=== PATIENT | female | born 1965 | race African-American/Black ===

== ENCOUNTER 2018-09-13 20:43 | Inpatient (IN) | payer OTHER ==
[~2018-09-13] VITALS: Ht 167.6 cm; Wt 117.0 kg
[2018-09-13 22:17] LABS: BASOPHIL % 0.1 % (0-2); PLATELET COUNT 266 x10^3mcL (130-400)
[2018-09-13 22:18] LABS: RED CELL DISTRIBUTION WIDTH 17.9 % (11.5-14.5)
[2018-09-13 22:29] LABS: CARBON DIOXIDE 28.5 mmol/L (21-32); CHLORIDE SERUM 103 mmol/L (98-107); CREATININE SERUM 0.9 mg/dL (0.6-1.0); GFR1 > 60 mL/min; GLUCOSE SERUM 88 mg/dL (74-106); POTASSIUM SERUM 3.8 mmol/L (3.5-5.1); SODIUM SERUM 140 mmol/L (136-145)
[2018-09-13 22:33] LABS: ALBUMIN 3.8 g/dL (3.4-5.0); ALKALINE PHOSPHATASE 85 U/L (46-116); ALT/SGPT 24 U/L (14-59); AST/SGOT 16 U/L (15-37); BILIRUBIN TOTAL 0.24 mg/dL (0.20-1.00); TOTAL PROTEIN, SERUM 8.2 g/dL (6.4-8.2)
[2018-09-14] MEDS ORDERED: COR6 PO (01:53)
[2018-09-14] MEDS ORDERED: LASIX40 MG PO (01:54)
[2018-09-14] MEDS ORDERED: CATAPRES0.1 MG PO (01:55)
[2018-09-14 02:49] LABS: CHOLESTEROL/HDL RATIO 4.7; MAGNESIUM 2.1 mg/dL (1.8-2.4); PHOSPHOROUS 3.2 mg/dL (2.5-4.9)
[2018-09-14 03:03] LABS: FREE T4 0.78 ng/dL (0.76-1.46); FREE THYROXINE INDEX 2.3 ug/dL (1.4-4.5); T4(THYROXINE) 8.1 ug/dL (4.7-13.3)
[2018-09-14 04:09] LABS: T3 TOTAL 1.11 ng/mL
[2018-09-14 04:57] VITALS: BP 150/90
[2018-09-14 05:00] VITALS: BP 150/90
[2018-09-14 06:31] LABS: CARBON DIOXIDE 32.4 mmol/L (21-32); CREATININE SERUM 1.1 mg/dL (0.6-1.0); PHOSPHOROUS 2.9 mg/dL (2.5-4.9); POTASSIUM SERUM 3.5 mmol/L (3.5-5.1)
[2018-09-14 06:48] VITALS: Ht 167.6 cm; Wt 117.0 kg
[2018-09-14 07:32] LABS: PLATELET COUNT 228 x10^3mcL (130-400)
[2018-09-14 07:39] LABS: BASOPHIL % 0 % (0-2)
[2018-09-14 07:42] LABS: microscopic required? NO
[2018-09-14 08:19] LABS: urine erythrocyte NEGATIVE (NEGATIVE)
[2018-09-14 08:30] VITALS: BP 157/85
[2018-09-14 08:40] LABS: AMPHETAMINE QUAL UR NONE DETECTED (See below)
[2018-09-14 09:21] VITALS: BP 184/81
[2018-09-14 11:58] VITALS: BP 144/76
[2018-09-14 16:33] VITALS: BP 136/70
[2018-09-15 05:31] VITALS: BP 167/58
[2018-09-15 06:51] VITALS: BP 149/76
[2018-09-15 06:53] LABS: PLATELET COUNT 226 x10^3mcL (130-400)
[2018-09-15 07:24] LABS: CALCIUM 9.1 mg/dL (8.5-10.1); CARBON DIOXIDE 31.7 mmol/L (21-32); CREATININE SERUM 1.1 mg/dL (0.6-1.0); MAGNESIUM 2.4 mg/dL (1.8-2.4); PHOSPHOROUS 4.2 mg/dL (2.5-4.9); POTASSIUM SERUM 3.7 mmol/L (3.5-5.1); RED CELL DISTRIBUTION WIDTH 17.6 % (11.5-14.5)
[2018-09-15 10:40] VITALS: BP 139/64
[2018-09-15 13:00] VITALS: BP 180/65
[2018-09-15] MEDS ORDERED: TOP50 PO (16:12)
[2018-09-15] MEDS ORDERED: ALT5 PO (16:13)
[2018-09-15] MEDS ORDERED: CHLORTHALIDONE25 MG PO (16:15)
[2018-09-15] MEDS ORDERED: POTASSIUM CHLOR8 ME1 PO (16:16)
[2018-09-15 16:35] VITALS: BP 150/70
== END 2018-09-15 18:30 | disposition home or self-care (01) | DRG 199 ==
LOC: ED 20:43 → DU 09-14 00:20
PROVIDERS: Emergency Medicine; ADMIT Internal Medicine
DX: I16.0 Hypertensive urgency (principal); I50.9 Heart failure, unspecified; E88.81 Metabolic syndrome and other insulin resistance; E11.65 Type 2 diabetes mellitus with hyperglycemia; E66.01 Morbid (severe) obesity due to excess calories; D50.9 Iron deficiency anemia, unspecified; E78.5 Hyperlipidemia, unspecified; I11.0 Hypertensive heart disease with heart failure; K58.9 Irritable bowel syndrome, unspecified; J44.9 Chronic obstructive pulmonary disease, unspecified; Z90.49 Acquired absence of other specified parts of digestive tract; Z90.710 Acquired absence of both cervix and uterus; Z83.3 Family history of diabetes mellitus; Z82.49 Family history of ischemic heart disease and other diseases of the circulatory system; Z91.011 Allergy to milk products; Z91.018 Allergy to other foods; Z86.711 Personal history of pulmonary embolism; Z88.0 Allergy status to penicillin; Z88.8 Allergy status to other drugs, medicaments and biological substances; Z86.718 Personal history of other venous thrombosis and embolism; Z68.41 Body mass index [BMI] 40.0-44.9, adult
CPT/HCPCS: 82962; 83880; 84439; 85378; A9540; J1650; J1885; J1940; J7620; Q0092; Q9967